=== PATIENT | male | born 1935 | race Caucasian/White ===

== ENCOUNTER 2017-09-06 09:07 | Emergency (ER) | payer MEDICARE, OTHER ==
[~2017-09-06] VITALS: Ht 180.3 cm; Wt 74.8 kg
[~2017-09-06 09:07] MED LIST: ATOR10; CARV3.125; CLOB.05TC TOP; CLOP75; FAMO20; LISI20 PO; Nitroglycerin0.4 MG SL; OMEG1CAP30; TRIA80TC TOP; Tasprin325 MG
[2017-09-06] MEDS ORDERED: Flomax0.4 MG PO (09:21)
== END 2017-09-06 09:45 | disposition home or self-care (01) ==
LOC: ER 09:07
DX: R33.9 Retention of urine, unspecified (principal); I10 Essential (primary) hypertension; E11.9 Type 2 diabetes mellitus without complications; J44.9 Chronic obstructive pulmonary disease, unspecified; F17.210 Nicotine dependence, cigarettes, uncomplicated
CPT/HCPCS: 51702; 51798; 81000; 99283

== ENCOUNTER 2017-09-09 08:25 | Emergency (ER) | payer MEDICARE, OTHER ==
[~2017-09-09] VITALS: Ht 180.3 cm; Wt 70.3 kg
[~2017-09-09 08:25] MED LIST changes: +Flomax0.4 MG PO
[2017-09-09 09:25] LABS: Source, Urine Catheter
[2017-09-09 09:33] LABS: Bilirubin, Urine Neg (Neg); Blood, Urine 5+ (Neg); Glucose Qualitative, Urine Neg (Neg); Ketones, Urine Neg (Neg); Leukocyte Esterase, Urine 1+ (Neg); Nitrite, Urine Neg (Neg); Protein, Urine 3+ (Neg); Urobilinogen, Urine NORM (Normal)
[2017-09-09 09:35] LABS: Appearance, Urine Cloudy (Clear); Color, Urine Yellow (P-Yellow)
[2017-09-09 09:38] LABS: Bacteria Few /hpf; Mucus Light (0-Heavy); Red Blood Cells, Urine 50-100 /hpf (0-2); Squamous Epithelial Cells Few /hpf (Few)
[2017-09-09] MEDS ORDERED: CIPR500 PO (09:40)
== END 2017-09-09 10:09 | disposition home or self-care (01) ==
LOC: ER 08:25
PROVIDERS: Physician Assistant
DX: N30.91 Cystitis, unspecified with hematuria (principal); I10 Essential (primary) hypertension; E11.9 Type 2 diabetes mellitus without complications; J44.9 Chronic obstructive pulmonary disease, unspecified; F17.210 Nicotine dependence, cigarettes, uncomplicated; Z88.2 Allergy status to sulfonamides; Z79.899 Other long term (current) drug therapy; Z79.82 Long term (current) use of aspirin
CPT/HCPCS: 71046; 81001; 87077; 87086; 87186; 99283

== ENCOUNTER 2017-12-15 17:44 | Emergency (ER) | payer MEDICARE, OTHER ==
[~2017-12-15] VITALS: Ht 180.3 cm; Wt 65.8 kg
[~2017-12-15 17:44] MED LIST changes: +CIPR500 PO
[2017-12-15 22:42] LABS: Source, Urine Clean Catch
[2017-12-15 22:54] LABS: Appearance, Urine Cloudy (Clear); Bilirubin, Urine Neg (Neg); Blood, Urine 5+ (Neg); Color, Urine Red (P-Yellow); Glucose Qualitative, Urine Neg (Neg); Ketones, Urine 1+ (Neg); Leukocyte Esterase, Urine 3+ (Neg); Nitrite, Urine Neg (Neg); Protein, Urine 3+ (Neg); Specific Gravity, Urine 1.015 (1.003-1.022); Urobilinogen, Urine NORM (Normal); pH, Urine 6.5 (5.0-8.0)
[2017-12-15 23:03] LABS: Bacteria Mod /hpf; Red Blood Cells, Urine TNTC /hpf (0-2); Squamous Epithelial Cells Not Seen /hpf (Few)
[2017-12-15] MEDS ORDERED: Cipro500 MG PO (23:11)
[2017-12-15] MEDS ORDERED: CEPH500 PO (23:28)
== END 2017-12-15 23:35 | disposition home or self-care (01) ==
LOC: ER 17:44
PROVIDERS: Emergency Medicine
DX: N40.0 Benign prostatic hyperplasia without lower urinary tract symptoms (principal); R31.9 Hematuria, unspecified; N39.0 Urinary tract infection, site not specified; Z88.2 Allergy status to sulfonamides; Z79.899 Other long term (current) drug therapy; Z79.82 Long term (current) use of aspirin; I10 Essential (primary) hypertension; E11.9 Type 2 diabetes mellitus without complications; J44.9 Chronic obstructive pulmonary disease, unspecified; F17.210 Nicotine dependence, cigarettes, uncomplicated
CPT/HCPCS: 81001; 87077; 87086; 87186; 99283

== ENCOUNTER 2018-03-15 23:37 | Emergency (ER) | payer MEDICARE, OTHER ==
[~2018-03-15] VITALS: Ht 180.3 cm; Wt 65.8 kg
[~2018-03-15 23:37] MED LIST changes: +CEPH500 PO; +Cipro500 MG PO
[2018-03-16 00:15] LABS: BASOPHILS ABSOLUTE AUTO 0.05 K/mm3 (0.00-0.23); BASOPHILS PERCENT AUTO 0 % (0-2); EOSINOPHILS ABSOLUTE AUTO 0.16 K/mm3 (0.00-0.68); EOSINOPHILS PERCENT AUTO 1 % (0-6); Hematocrit 40.9 % (37.0-53.0); IMMATURE GRAN ABSOLUTE AUTO 0.03 K/mm3 (0.00-0.10); IMMATURE GRAN PERCENT AUTO 0 % (0-1); LYMPHOCYTES ABSOLUTE AUTO 2.02 K/mm3 (0.84-5.20); LYMPHOCYTES PERCENT AUTO 17 % (21-46); MONOCYTES PERCENT AUTO 8 % (4-13); Mean Corpuscular HGB 30.7 pg (26.0-34.0); Mean Corpuscular HGB Conc 31.8 g/dL (31.5-36.5); Mean Corpuscular Volume 97 fL (80-100); Mean Platelet Volume 9.7 fL (9.1-12.4); NEUTROPHILS ABSOLUTE AUTO 8.51 K/mm3 (1.96-9.15); NEUTROPHILS PERCENT AUTO 73 % (41-73); Platelet Count 320 K/mm3 (150-400); RDW Coefficient Variation 15.6 % (11.7-14.2); RDW Standard Deviation 55.6 fL (35.1-46.3); Red Blood Cell Count 4.24 M/mm3 (4.30-5.90); White Blood Cell Count 11.67 K/mm3 (4.00-11.30)
[2018-03-16 00:34] LABS: Alanine Aminotransfer (ALT/SGP 20 U/L (12-78); Albumin, Blood 3.1 g/dL (3.4-5.0); Albumin/Globulin Ratio 0.8 (0.8-1.8); Alk Phos 92 U/L (50-136); Anion Gap 9 mmol/L (6-16); Aspartate Aminotrans (AST/SGOT 18 U/L (12-37); Bilirubin, Total 0.3 mg/dL (0.1-1.0); Blood Urea Nitrogen 15 mg/dL (8-24); Bun/Creatinine Ratio 17.5 (12.0-20.0); CO2, Blood 27 mmol/L (21-32); Calcium, Blood 8.5 mg/dL (8.5-10.1); Chloride, Blood 105 mmol/L (98-108); Creatinine, Blood 0.86 mg/dL (0.60-1.20); Glomerular Filtration Rate >60 (60-); Glucose, Blood 104 mg/dL (70-99); Potassium, Blood 3.9 mmol/L (3.5-5.5); Sodium, Blood 141 mmol/L (136-145); Total Protein, Blood 7.1 g/dL (6.4-8.2)
[2018-03-16 01:29] LABS: Source, Urine Clean Catch
[2018-03-16 01:36] LABS: Bilirubin, Urine Neg (Neg); Blood, Urine 5+ (Neg); Glucose Qualitative, Urine Neg (Neg); Ketones, Urine Neg (Neg); Leukocyte Esterase, Urine 3+ (Neg); Nitrite, Urine Pos (Neg); Protein, Urine 3+ (Neg); Specific Gravity, Urine 1.005 (1.003-1.022); Urobilinogen, Urine NORM (Normal)
[2018-03-16 01:38] LABS: Appearance, Urine Hazy (Clear); Color, Urine Red (P-Yellow)
[2018-03-16 01:42] LABS: Bacteria Mod /hpf; Red Blood Cells, Urine TNTC /hpf (0-2); Squamous Epithelial Cells Few /hpf (Few); White Blood Cells, Urine 25-50 /hpf (0-5)
[2018-03-16] MEDS ORDERED: Cefdinir300 MG PO (01:59)
== END 2018-03-16 02:18 | disposition home or self-care (01) ==
LOC: ER 23:37
PROVIDERS: Emergency Medicine
DX: N39.0 Urinary tract infection, site not specified (principal); I10 Essential (primary) hypertension; E11.9 Type 2 diabetes mellitus without complications; J44.9 Chronic obstructive pulmonary disease, unspecified; F17.210 Nicotine dependence, cigarettes, uncomplicated; Z88.2 Allergy status to sulfonamides; Z79.899 Other long term (current) drug therapy
CPT/HCPCS: 36415; 80053; 81001; 85025; 87077; 87086; 87147; 87186; 93005; 93010; 96360; 99283-25; J7030

== ENCOUNTER 2018-03-24 20:48 | Emergency (ER) | payer MEDICARE, OTHER ==
[~2018-03-24] VITALS: Ht 180.3 cm; Wt 65.8 kg
[~2018-03-24 20:48] MED LIST changes: +Cefdinir300 MG PO
[2018-03-24 21:48] LABS: BASOPHILS ABSOLUTE AUTO 0.07 K/mm3 (0.00-0.23); BASOPHILS PERCENT AUTO 1 % (0-2); EOSINOPHILS ABSOLUTE AUTO 0.24 K/mm3 (0.00-0.68); EOSINOPHILS PERCENT AUTO 3 % (0-6); Hematocrit 39.7 % (37.0-53.0); Hemoglobin 12.4 g/dL (13.5-17.5); IMMATURE GRAN ABSOLUTE AUTO 0.01 K/mm3 (0.00-0.10); IMMATURE GRAN PERCENT AUTO 0 % (0-1); LYMPHOCYTES ABSOLUTE AUTO 1.88 K/mm3 (0.84-5.20); LYMPHOCYTES PERCENT AUTO 24 % (21-46); MONOCYTES ABSOLUTE AUTO 0.74 K/mm3 (0.16-1.47); MONOCYTES PERCENT AUTO 9 % (4-13); Mean Corpuscular HGB 30.6 pg (26.0-34.0); Mean Corpuscular HGB Conc 31.2 g/dL (31.5-36.5); Mean Corpuscular Volume 98 fL (80-100); Mean Platelet Volume 9.4 fL (9.1-12.4); NEUTROPHILS ABSOLUTE AUTO 5.01 K/mm3 (1.96-9.15); NEUTROPHILS PERCENT AUTO 63 % (41-73); Platelet Count 355 K/mm3 (150-400); RDW Coefficient Variation 15.3 % (11.7-14.2); RDW Standard Deviation 55.1 fL (35.1-46.3); Red Blood Cell Count 4.05 M/mm3 (4.30-5.90); White Blood Cell Count 7.95 K/mm3 (4.00-11.30)
[2018-03-24 22:25] LABS: Alanine Aminotransfer (ALT/SGP 28 U/L (12-78); Albumin, Blood 2.7 g/dL (3.4-5.0); Albumin/Globulin Ratio 0.7 (0.8-1.8); Alk Phos 108 U/L (50-136); Anion Gap 5 mmol/L (6-16); Aspartate Aminotrans (AST/SGOT 22 U/L (12-37); Bilirubin, Total 0.1 mg/dL (0.1-1.0); Blood Urea Nitrogen 16 mg/dL (8-24); Bun/Creatinine Ratio 18.1 (12.0-20.0); CO2, Blood 30 mmol/L (21-32); Calcium, Blood 8.1 mg/dL (8.5-10.1); Chloride, Blood 105 mmol/L (98-108); Creatinine, Blood 0.88 mg/dL (0.60-1.20); Globulin, Blood 4.1 g/dL (2.2-4.0); Glomerular Filtration Rate >60 (60-); Glucose, Blood 132 mg/dL (70-99); Potassium, Blood 3.8 mmol/L (3.5-5.5); Sodium, Blood 140 mmol/L (136-145); Total Protein, Blood 6.8 g/dL (6.4-8.2)
[2018-03-24 22:58] LABS: Source, Urine Clean Catch
[2018-03-24 23:02] LABS: Bilirubin, Urine Neg (Neg); Blood, Urine 5+ (Neg); Glucose Qualitative, Urine Neg (Neg); Ketones, Urine 1+ (Neg); Leukocyte Esterase, Urine 3+ (Neg); Nitrite, Urine Neg (Neg); Protein, Urine 4+ (Neg); Urobilinogen, Urine NORM (Normal)
[2018-03-24 23:07] LABS: Appearance, Urine Cloudy (Clear); Color, Urine Red (P-Yellow)
[2018-03-24 23:08] LABS: Red Blood Cells, Urine TNTC /hpf (0-2)
[2018-03-24 23:09] LABS: Bacteria Many /hpf; Squamous Epithelial Cells Not Seen /hpf (Few); Yeast/Fungi Urine Few /hpf
[2018-03-24] MEDS ORDERED: LEVO750 PO (23:35)
== END 2018-03-24 23:45 | disposition home or self-care (01) ==
LOC: ER 20:48
PROVIDERS: Emergency Medicine
DX: N39.0 Urinary tract infection, site not specified (principal); Z88.2 Allergy status to sulfonamides; Z79.899 Other long term (current) drug therapy; I10 Essential (primary) hypertension; E11.9 Type 2 diabetes mellitus without complications; J44.9 Chronic obstructive pulmonary disease, unspecified; F17.210 Nicotine dependence, cigarettes, uncomplicated
CPT/HCPCS: 36415; 80053; 81001; 85025; 87086; 99283

== ENCOUNTER 2018-07-02 04:45 | Emergency (ER) | payer MEDICARE, OTHER ==
[~2018-07-02] VITALS: Ht 154.9 cm; Wt 70.3 kg
[~2018-07-02 04:45] MED LIST changes: -ATOR10; +ATOR10 PO; -FAMO20; +FAMO20 PO; +LEVO750 PO
[2018-07-02 06:02] LABS: BASOPHILS ABSOLUTE AUTO 0.05 K/mm3 (0.00-0.23); BASOPHILS PERCENT AUTO 1 % (0-2); EOSINOPHILS ABSOLUTE AUTO 0.14 K/mm3 (0.00-0.68); EOSINOPHILS PERCENT AUTO 2 % (0-6); Hematocrit 43.7 % (37.0-53.0); Hemoglobin 13.9 g/dL (13.5-17.5); IMMATURE GRAN ABSOLUTE AUTO 0.03 K/mm3 (0.00-0.10); IMMATURE GRAN PERCENT AUTO 0 % (0-1); LYMPHOCYTES ABSOLUTE AUTO 1.51 K/mm3 (0.84-5.20); LYMPHOCYTES PERCENT AUTO 18 % (21-46); MONOCYTES ABSOLUTE AUTO 0.74 K/mm3 (0.16-1.47); MONOCYTES PERCENT AUTO 9 % (4-13); Mean Corpuscular HGB 31.1 pg (26.0-34.0); Mean Corpuscular HGB Conc 31.8 g/dL (31.5-36.5); Mean Corpuscular Volume 98 fL (80-100); Mean Platelet Volume 9.6 fL (9.1-12.4); NEUTROPHILS ABSOLUTE AUTO 6.04 K/mm3 (1.96-9.15); NEUTROPHILS PERCENT AUTO 71 % (41-73); Platelet Count 287 K/mm3 (150-400); RDW Coefficient Variation 15.9 % (11.7-14.2); Red Blood Cell Count 4.47 M/mm3 (4.30-5.90); White Blood Cell Count 8.51 K/mm3 (4.00-11.30)
[2018-07-02 06:17] LABS: International Normalized Ratio 1.04
[2018-07-02 06:46] LABS: Alanine Aminotransfer (ALT/SGP 20 U/L (12-78); Albumin, Blood 3.1 g/dL (3.4-5.0); Albumin/Globulin Ratio 0.9 (0.8-1.8); Alk Phos 96 U/L (50-136); Anion Gap 2 mmol/L (6-16); Aspartate Aminotrans (AST/SGOT 19 U/L (12-37); Bilirubin, Total 0.4 mg/dL (0.1-1.0); Blood Urea Nitrogen 11 mg/dL (8-24); CO2, Blood 31 mmol/L (21-32); Calcium, Blood 8.4 mg/dL (8.5-10.1); Chloride, Blood 110 mmol/L (98-108); Creatinine, Blood 0.79 mg/dL (0.60-1.20); Globulin, Blood 3.6 g/dL (2.2-4.0); Glomerular Filtration Rate >60 (60-); Glucose, Blood 90 mg/dL (70-99); Potassium, Blood 4.2 mmol/L (3.5-5.5); Sodium, Blood 143 mmol/L (136-145); Total Protein, Blood 6.7 g/dL (6.4-8.2)
== END 2018-07-02 07:25 | disposition home or self-care (01) ==
LOC: ER 04:45
PROVIDERS: Emergency Medicine
DX: I10 Essential (primary) hypertension (principal); E11.9 Type 2 diabetes mellitus without complications; J44.9 Chronic obstructive pulmonary disease, unspecified; I25.10 Atherosclerotic heart disease of native coronary artery without angina pectoris; F17.210 Nicotine dependence, cigarettes, uncomplicated; Z88.2 Allergy status to sulfonamides; Z79.899 Other long term (current) drug therapy; Z79.82 Long term (current) use of aspirin
CPT/HCPCS: 36415; 70450; 80053; 85025; 85610; 93005; 93010; 99284-25

== ENCOUNTER 2018-07-15 11:16 | Emergency (ER) | payer MEDICARE, OTHER ==
[~2018-07-15] VITALS: Ht 180.3 cm; Wt 70.3 kg
== END 2018-07-15 12:43 | disposition home or self-care (01) ==
LOC: ER 11:16
DX: I10 Essential (primary) hypertension (principal); E11.9 Type 2 diabetes mellitus without complications; J44.9 Chronic obstructive pulmonary disease, unspecified; F17.210 Nicotine dependence, cigarettes, uncomplicated
CPT/HCPCS: 99282

== ENCOUNTER 2019-11-23 02:15 | Emergency (ER) | payer MEDICARE, OTHER ==
[~2019-11-23] VITALS: Ht 180.3 cm; Wt 61.2 kg
[2019-11-23] MEDS ORDERED: NITR.4SL SL (02:44)
== END 2019-11-23 04:58 | disposition left against medical advice (07) ==
LOC: ER 02:15
DX: Z53.21 Procedure and treatment not carried out due to patient leaving prior to being seen by health care provider (principal)

== ENCOUNTER → 2020-02-19 | Outpatient (CLI) | payer MEDICARE, OTHER ==
[~2020-02-19] MED LIST changes: +NITR.4SL SL
[2020-02-19 16:02] LABS: BASOPHILS ABSOLUTE AUTO 0.05 K/mm3 (0.00-0.23); BASOPHILS PERCENT AUTO 1 % (0-2); EOSINOPHILS ABSOLUTE AUTO 0.12 K/mm3 (0.00-0.68); EOSINOPHILS PERCENT AUTO 2 % (0-6); Hematocrit 47.2 % (37.0-53.0); Hemoglobin 14.5 g/dL (13.5-17.5); IMMATURE GRAN ABSOLUTE AUTO 0.03 K/mm3 (0.00-0.10); IMMATURE GRAN PERCENT AUTO 0 % (0-1); LYMPHOCYTES ABSOLUTE AUTO 1.86 K/mm3 (0.84-5.20); LYMPHOCYTES PERCENT AUTO 27 % (21-46); MONOCYTES ABSOLUTE AUTO 0.52 K/mm3 (0.16-1.47); MONOCYTES PERCENT AUTO 8 % (4-13); Mean Corpuscular HGB 29.5 pg (26.0-34.0); Mean Corpuscular HGB Conc 30.7 g/dL (31.5-36.5); Mean Corpuscular Volume 96 fL (80-100); Mean Platelet Volume 9.6 fL (9.1-12.4); NEUTROPHILS ABSOLUTE AUTO 4.21 K/mm3 (1.96-9.15); NEUTROPHILS PERCENT AUTO 62 % (41-73); Platelet Count 318 K/mm3 (150-400); RDW Coefficient Variation 15.6 % (11.7-14.2); RDW Standard Deviation 55.8 fL (35.1-46.3); Red Blood Cell Count 4.92 M/mm3 (4.30-5.90); White Blood Cell Count 6.79 K/mm3 (4.00-11.30)
[2020-02-19 16:20] LABS: Alanine Aminotransfer (ALT/SGP 24 U/L (12-78); Albumin, Blood 3.4 g/dL (3.4-5.0); Albumin/Globulin Ratio 0.8 (0.8-1.8); Alk Phos 75 U/L (50-136); Anion Gap 4 mmol/L (6-16); Aspartate Aminotrans (AST/SGOT 21 U/L (12-37); Bilirubin, Total 0.4 mg/dL (0.1-1.0); Blood Urea Nitrogen 18 mg/dL (8-24); Bun/Creatinine Ratio 18.2 (12.0-20.0); CHOL/HDL RATIO 1.7; CO2, Blood 32 mmol/L (21-32); Calcium, Blood 8.6 mg/dL (8.5-10.1); Chloride, Blood 104 mmol/L (98-108); Cholesterol 140 mg/dL (50-200); Creatinine, Blood 0.99 mg/dL (0.60-1.20); Glomerular Filtration Rate >60 (60-); Glucose, Blood 86 mg/dL (70-99); HDL Cholesterol 81 mg/dL (>39); LDL/HDL RATIO 0.5; Low Density Lipoprotein Chol 43 mg/dL (0-110); Sodium, Blood 140 mmol/L (136-145); Total Protein, Blood 7.4 g/dL (6.4-8.2); Triglycerides 79 mg/dL (30-160); Very Low Density Lipoprot Chol 15 mg/dL (6-32)
== END | disposition home or self-care (01) ==
LOC: LAB 14:42 → LAB SHORT 14:42
PROVIDERS: Family Medicine
DX: E78.5 Hyperlipidemia, unspecified (principal); I10 Essential (primary) hypertension
CPT/HCPCS: 80053; 80061; 85025

== ENCOUNTER → 2020-08-17 | Outpatient (CLI) | payer MEDICARE, OTHER ==
[2020-08-18 09:55] LABS: BASOPHILS ABSOLUTE AUTO 0.03 K/mm3 (0.00-0.23); BASOPHILS PERCENT AUTO 0 % (0-2); EOSINOPHILS ABSOLUTE AUTO 0.13 K/mm3 (0.00-0.68); EOSINOPHILS PERCENT AUTO 2 % (0-6); Hematocrit 47.9 % (37.0-53.0); Hemoglobin 14.5 g/dL (13.5-17.5); IMMATURE GRAN ABSOLUTE AUTO 0.01 K/mm3 (0.00-0.10); IMMATURE GRAN PERCENT AUTO 0 % (0-1); LYMPHOCYTES ABSOLUTE AUTO 1.77 K/mm3 (0.84-5.20); LYMPHOCYTES PERCENT AUTO 26 % (21-46); MONOCYTES ABSOLUTE AUTO 0.52 K/mm3 (0.16-1.47); MONOCYTES PERCENT AUTO 8 % (4-13); Mean Corpuscular HGB Conc 30.3 g/dL (31.5-36.5); Mean Corpuscular Volume 99 fL (80-100); Mean Platelet Volume 10.3 fL (9.1-12.4); NEUTROPHILS ABSOLUTE AUTO 4.49 K/mm3 (1.96-9.15); NEUTROPHILS PERCENT AUTO 65 % (41-73); Platelet Count 259 K/mm3 (150-400); RDW Coefficient Variation 16.5 % (11.7-14.2); RDW Standard Deviation 60.2 fL (35.1-46.3); Red Blood Cell Count 4.84 M/mm3 (4.30-5.90); White Blood Cell Count 6.95 K/mm3 (4.00-11.30)
== END | disposition home or self-care (01) ==
LOC: LAB UCHC 15:30 → LAB SHORT 15:30
PROVIDERS: Nurse Practitioner Family
DX: E78.5 Hyperlipidemia, unspecified (principal); E55.9 Vitamin D deficiency, unspecified
CPT/HCPCS: 82306; 85025

== ENCOUNTER 2020-08-26 11:42 | Observation (INO) | payer MEDICARE, OTHER ==
[~2020-08-26] VITALS: Ht 180.3 cm; Wt 61.0 kg
--- NOTE | 2020-08-26 16:20 | NUR ---
History, Chart, Medications and Allergies reviewed before start of procedure. Patient confirms NPO status and agrees with scheduled surgery.
--- NOTE | 2020-08-26 16:22 | NUR ---
FROM ER TO [facility] ADMISSION TO OUR UNIT STARTED.
[2020-08-26 16:53] LABS: SARS-Cov-2 (COVID-19) PCR, MMC NEGATIVE (NEGATIVE)
--- NOTE | 2020-08-26 17:13 | NUR ---
INTO STEP FROM PACU VSS PATIENT AWAKE WITH OCCAIONAL COUGH
--- NOTE | 2020-08-26 17:39 | NUR ---
08/26/20 1739 Greg Warren HISTORY,CHART, MEDICATIONS AND ALLERGIES REVIEWED BEFORE START OF PROCEDURE. PATIENT CONFIRMS NPO STATUS AND AGREES WITH SCHEDULED PROCEDURE. 3-LEAD EKG REVIEWED WITH PHYSICIAN PRIOR TO START OF PROCEDURE. MONITOR INTACT WITH CONTINUOUS PULSE OXIMETRY AND INTERMITTENT BP. SUPPLEMENTAL O2 TO BE TITRATED THROUGHOUT PROCEDURE TO MAINTAIN O2 SATURATION ABOVE 90%. PATIENT DETERMINED TO BE ASA APPROPRIATE FOR MODERATE SEDATION PRIOR TO START OF PROCEDURE BY DR. MCCORMICK. BITE BLOCK PLACED.
--- NOTE | 2020-08-26 17:51 | NUR ---
Discharge instructions reviewed with patient. Patient verbalizes understanding. Copy given to patient to take home. Discharged via wheelchair to private car for ride home.
--- NOTE | 2020-08-27 06:22 | NUR ---
SHIFT SUMMARY PATIENT ALERT AND ORIENTED. HAD NO COMPLAINTS OF PAIN OR SHORTNESS OF BREATH. NO ACUTE ISSUES NOTED OVERNIGHT. IV PATENT AND FLUSHED. BED IN LOWEST POSITION WITH WHEELS LOCKED. CALL LIGHT WITHIN REACH. REPORT GIVEN TO ONCOMING RN.
--- NOTE | 2020-08-27 10:13 | NUR ---
REVIEW D'C. NO CHANGES IN MEDS. AWARE HAS F/U APPT 09/02. AWARE NEEDS REFERRAL TO ENT MD. ANSWER ALL QUESTIONS. VERBALIZES UNDERSTANDING. IN W/C DOWN TO POV.
== END 2020-08-27 09:53 | disposition home or self-care (01) ==
LOC: ER 11:42 → MEDS 11:43 → ER 16:09 → MEDS 18:58
PROVIDERS: Emergency Medicine; Internal Medicine Gastroenterology; ADMIT Internal Medicine
PROC: 0DJ08ZZ Inspection of Upper Intestinal Tract, Via Natural or Artificial Opening Endoscopic (ICD-10-PCS; principal; 2020-08-26 17:00)
DX: R09.89 Other specified symptoms and signs involving the circulatory and respiratory systems (principal); J44.9 Chronic obstructive pulmonary disease, unspecified; F17.210 Nicotine dependence, cigarettes, uncomplicated; I25.10 Atherosclerotic heart disease of native coronary artery without angina pectoris; N40.0 Benign prostatic hyperplasia without lower urinary tract symptoms; I10 Essential (primary) hypertension; E78.5 Hyperlipidemia, unspecified; K21.9 Gastro-esophageal reflux disease without esophagitis; Z86.73 Personal history of transient ischemic attack (TIA), and cerebral infarction without residual deficits; Z88.2 Allergy status to sulfonamides; Z95.5 Presence of coronary angioplasty implant and graft; Z79.82 Long term (current) use of aspirin; Z86.010 Personal history of colon polyps; Z20.822 Contact with and (suspected) exposure to COVID-19
CPT/HCPCS: 70360; 71046; 94760; 96372; 99284-25; A9270; G0378; J1650; J2250; J3010; J7120; U0004

== ENCOUNTER → 2020-12-02 | Outpatient (CLI) | payer MEDICARE, OTHER ==
[2020-12-02 17:42] LABS: BASOPHILS ABSOLUTE AUTO 0.04 K/mm3 (0.00-0.23); BASOPHILS PERCENT AUTO 1 % (0-2); EOSINOPHILS ABSOLUTE AUTO 0.06 K/mm3 (0.00-0.68); EOSINOPHILS PERCENT AUTO 1 % (0-6); Hematocrit 44.5 % (37.0-53.0); Hemoglobin 14.5 g/dL (13.5-17.5); IMMATURE GRAN ABSOLUTE AUTO 0.02 K/mm3 (0.00-0.10); IMMATURE GRAN PERCENT AUTO 0 % (0-1); LYMPHOCYTES ABSOLUTE AUTO 1.48 K/mm3 (0.84-5.20); LYMPHOCYTES PERCENT AUTO 19 % (21-46); MONOCYTES ABSOLUTE AUTO 0.49 K/mm3 (0.16-1.47); MONOCYTES PERCENT AUTO 6 % (4-13); Mean Corpuscular HGB 30.4 pg (26.0-34.0); Mean Corpuscular HGB Conc 32.6 g/dL (31.5-36.5); Mean Corpuscular Volume 93 fL (80-100); Mean Platelet Volume 9.2 fL (9.1-12.4); NEUTROPHILS ABSOLUTE AUTO 5.82 K/mm3 (1.96-9.15); NEUTROPHILS PERCENT AUTO 74 % (41-73); Platelet Count 247 K/mm3 (150-400); RDW Coefficient Variation 15.4 % (11.7-14.2); RDW Standard Deviation 52.9 fL (35.1-46.3); Red Blood Cell Count 4.77 M/mm3 (4.30-5.90); White Blood Cell Count 7.91 K/mm3 (4.00-11.30)
[2020-12-02 17:46] LABS: Anion Gap 5 mmol/L (6-16); Blood Urea Nitrogen 19 mg/dL (8-24); Bun/Creatinine Ratio 16.7 (12.0-20.0); CO2, Blood 31 mmol/L (21-32); Calcium, Blood 8.4 mg/dL (8.5-10.1); Chloride, Blood 105 mmol/L (98-108); Creatinine, Blood 1.14 mg/dL (0.60-1.20); Glomerular Filtration Rate >60 (60-); Glucose, Blood 99 mg/dL (70-99); Potassium, Blood 4.6 mmol/L (3.5-5.5); Sodium, Blood 141 mmol/L (136-145)
== END | disposition home or self-care (01) ==
LOC: LAB 17:36 → LAB SHORT 17:36
PROVIDERS: Physician Assistant
DX: I10 Essential (primary) hypertension (principal)
CPT/HCPCS: 80048; 83880; 85025

== ENCOUNTER → 2021-03-05 | Outpatient (CLI) | payer MEDICARE, OTHER ==
[2021-03-05 20:21] LABS: CHOL/HDL RATIO 1.7; Cholesterol 137 mg/dL (50-200); HDL Cholesterol 80 mg/dL (>39); LDL/HDL RATIO 0.5; Low Density Lipoprotein Chol 43 mg/dL (0-110); Triglycerides 69 mg/dL (30-160); Very Low Density Lipoprot Chol 13 mg/dL (6-32)
== END | disposition home or self-care (01) ==
LOC: LAB SHORT 18:02 → LAB 18:02
PROVIDERS: Nurse Practitioner Family
DX: E78.5 Hyperlipidemia, unspecified (principal); E55.9 Vitamin D deficiency, unspecified; R97.20 Elevated prostate specific antigen [PSA]
CPT/HCPCS: 80061; 82306; 84153

== ENCOUNTER 2021-08-16 13:31 | Inpatient (IN) | payer OTHER ==
[~2021-08-16] VITALS: Ht 180.3 cm; Wt 54.9 kg
[~2021-08-16 13:31] MED LIST changes: -FAMO20 PO; +FAMO40 PO
[2021-08-16 15:52] LABS: BASOPHILS ABSOLUTE AUTO 0.01 K/mm3 (0.00-0.23); BASOPHILS PERCENT AUTO 0 % (0-2); EOSINOPHILS PERCENT AUTO 0 % (0-6); Hematocrit 51.3 % (37.0-53.0); Hemoglobin 15.7 g/dL (13.5-17.5); IMMATURE GRAN ABSOLUTE AUTO 0.03 K/mm3 (0.00-0.10); IMMATURE GRAN PERCENT AUTO 0 % (0-1); LYMPHOCYTES ABSOLUTE AUTO 0.45 K/mm3 (0.84-5.20); LYMPHOCYTES PERCENT AUTO 5 % (21-46); MONOCYTES ABSOLUTE AUTO 0.46 K/mm3 (0.16-1.47); MONOCYTES PERCENT AUTO 5 % (4-13); Mean Corpuscular HGB Conc 30.6 g/dL (31.5-36.5); Mean Corpuscular Volume 101 fL (80-100); Mean Platelet Volume 10.4 fL (9.1-12.4); NEUTROPHILS ABSOLUTE AUTO 7.51 K/mm3 (1.96-9.15); NEUTROPHILS PERCENT AUTO 89 % (41-73); Platelet Count 177 K/mm3 (150-400); RDW Coefficient Variation 17.1 % (11.7-14.2); RDW Standard Deviation 64.1 fL (35.1-46.3); Red Blood Cell Count 5.06 M/mm3 (4.30-5.90); White Blood Cell Count 8.46 K/mm3 (4.00-11.30)
[2021-08-16 16:11] LABS: Albumin, Blood 2.7 g/dL (3.4-5.0); Albumin/Globulin Ratio 0.8 (0.8-1.8); Bilirubin, Total 0.6 mg/dL (0.1-1.0); Calcium, Blood 8.7 mg/dL (8.5-10.1); Creatinine, Blood 0.87 mg/dL (0.60-1.20); Globulin, Blood 3.2 g/dL (2.2-4.0); Potassium, Blood 4.5 mmol/L (3.5-5.5); Total Protein, Blood 5.9 g/dL (6.4-8.2)
[2021-08-16 16:14] LABS: Creatine Kinase MB 16.3 ng/mL (0.0-3.6)
[2021-08-16] MEDS ORDERED: METOPROLOL SUCC25 MG PO (16:18)
[2021-08-16] MEDS ORDERED: LISI20 PO (16:18)
[2021-08-16 16:28] LABS: Magnesium, Blood 2.3 mg/dL (1.6-2.4)
[2021-08-16 17:55] LABS: Source, Urine Clean Catch
[2021-08-16 17:59] LABS: Appearance, Urine Hazy (Clear); Bilirubin, Urine Neg (Neg); Blood, Urine 2+ (Neg); Color, Urine Amber (P-Yellow); Glucose Qualitative, Urine Neg (Neg); Ketones, Urine 3+ (Neg); Leukocyte Esterase, Urine Neg (Neg); Nitrite, Urine Neg (Neg); Protein, Urine 2+ (Neg); Specific Gravity, Urine 1.025 (1.003-1.022); Urobilinogen, Urine NORM (Normal)
[2021-08-16 18:14] LABS: Bacteria Many /hpf; Squamous Epithelial Cells Few /hpf (Few)
[2021-08-16 19:31] LABS: Influenza A, PCR NEGATIVE (NEGATIVE); Influenza B, PCR NEGATIVE (NEGATIVE); Resp Syncytial Virus, PCR NEGATIVE (NEGATIVE); SARS-Cov-2 (COVID-19) PCR, MMC NEGATIVE (NEGATIVE)
[2021-08-16] MEDS ORDERED: CHLO25B PO (20:38)
--- NOTE | 2021-08-16 21:36 | NUR ---
PT UP TO FLOOR. PT ANSWERS QUESTIONS APPROPRIATELY BUT QUICKLY FALLS ASLEEP. PT LUNGS COARSE ON 2L NC. PT BELONGINGS WALLET, KEYS, UNDERWEAR IN ROOM ON BEDSIDE TABLE.
[2021-08-17 05:48] LABS: BASOPHILS PERCENT AUTO 0 % (0-2); EOSINOPHILS PERCENT AUTO 0 % (0-6); Hemoglobin 14.6 g/dL (13.5-17.5); IMMATURE GRAN ABSOLUTE AUTO 0.04 K/mm3 (0.00-0.10); IMMATURE GRAN PERCENT AUTO 1 % (0-1); LYMPHOCYTES ABSOLUTE AUTO 0.24 K/mm3 (0.84-5.20); LYMPHOCYTES PERCENT AUTO 3 % (21-46); MONOCYTES ABSOLUTE AUTO 0.13 K/mm3 (0.16-1.47); MONOCYTES PERCENT AUTO 2 % (4-13); Mean Corpuscular HGB 30.3 pg (26.0-34.0); Mean Corpuscular HGB Conc 29.8 g/dL (31.5-36.5); Mean Corpuscular Volume 102 fL (80-100); NEUTROPHILS ABSOLUTE AUTO 7.22 K/mm3 (1.96-9.15); NEUTROPHILS PERCENT AUTO 95 % (41-73); Platelet Count 168 K/mm3 (150-400); RDW Coefficient Variation 17.2 % (11.7-14.2); Red Blood Cell Count 4.82 M/mm3 (4.30-5.90); White Blood Cell Count 7.63 K/mm3 (4.00-11.30)
--- NOTE | 2021-08-17 06:02 | NUR ---
SHIFT SUMMARY NOC: PT SLEPT ALL SHIFT. PT ORIENTATION STATUS WAXED AND WANED WITH HOW SLEEPY HE WAS. PT WOULD ANSWER QUESTIONS APPROPRIATELY THEN FALL ASLEEP AND SPEECH WOULD BE GARBLED WHEN TRYING TO WAKE UP. PT ABLE TO FOLLOW COMMANDS, MOVES ALL EXTREMITIES, VOIDS IN URINAL, VERY WEAK.
[2021-08-17 06:04] LABS: Albumin, Blood 2.4 g/dL (3.4-5.0); Albumin/Globulin Ratio 0.8 (0.8-1.8); Bilirubin, Total 0.4 mg/dL (0.1-1.0); Bun/Creatinine Ratio 37.2 (12.0-20.0); Calcium, Blood 8.2 mg/dL (8.5-10.1); Creatinine, Blood 0.83 mg/dL (0.60-1.20); Potassium, Blood 4.7 mmol/L (3.5-5.5); Total Protein, Blood 5.4 g/dL (6.4-8.2)
--- NOTE | 2021-08-17 15:48 | NUR ---
DR. BROWN NOTIFIED OF BP 83/60. DR. BROWN REPORTED SHE WOULD PLACE ORDERS FOR MIDODRINE WITH PARAMETERS.
--- NOTE | 2021-08-17 18:44 | NUR ---
SHIFT SUMMARY: PATIENT HAS BEEN ALERT AND ORIENTED. PATIENT WAS ABLE TO GET UP TO THE CHAIR WITH PT. TAB ALARM PLACED ON PATIENT. PATIENT IS ABLE TO AMBULATE TO BATHROOM WITH FWW AND GB. PATIENT IS ABLE TO FOLLOW ALL COMMANDS. HIS BP WAS 83/60 AND 84/58 IN EACH ARM WHEN CHECKED AT 1530. WAS CALLED. ORDER WAS PLACED FOR MIDODRINE. PATIENT DOES NOT COMPLAIN OF ANY LIGHTHEADEDNESS OF DIZZINESS. PATIENT IS NOW RESTING COMFORTABLY IN BED.
--- NOTE | 2021-08-18 04:19 | NUR ---
SHIFT SUMMARY NO ACUTE CHANGES OVERNIGHT. PT REMAINED ON 2L NC, 02 SATS OVER 90%. DENIES SOB AND COUGH AT THIS TIME. VSS, MILDLY HYPOTENSIVE BUT ASYMPTOMATIC. PT AMBULATES IN THE BATHROOM WITH FWW ANG GB, 1SBA DENIES DIZZINESS. PT STILL HAS SOME EDEMA ON BLE. IV NS 1 BAG FINISHED THIS MORNING. PT AOX3 INTERMITTENTLY CONFUSED BUT EASILY REDIRECTED, APPROPRIATE, PLEASANT AND COOPERATIVE WITH CARE. PT HAD A GOOD NIGHT, VOIDING ADEQUATELY. TOLERATING PO INTAKE DENIES NAUSEA AND VOMITING. CALL LIGHT WITHIN REACH. HE CALLS APPROPRIATELY. WILL PROVIDE REPORT TO ONCOMING NURSE.
--- NOTE | 2021-08-18 18:46 | NUR ---
SHIFT SUMMARY- PT SAT ON SIDE OF BED THROUGHOUT PART OF SHIFT. PT MEDICATED PER EMAR PRESCRIBED. PT SLEPT DURING MID SHIFT. PT HAD SHOWER. PT COMPLIANT WITH ALL CARE. NO C/O OF PAIN DURING SHIFT. PT AMBULATED WITH ASSISTANCE WELL, AND WORKED WELL WITH PT. PT A&O X3. PT RESTING WITH CALL LIGHT WITHIN REACH, BED ALARM, AND SIDE RAILS UP.
--- NOTE | 2021-08-19 01:26 | NUR ---
SUMMARY NO ACUTE CHANGES OVERNIGHT. PT REMAINS ON 90'S FOR SYSTOLIC BUT ASYMPTOMATIC DENIES DIZZINESS, LIGHTHEADEDNESS AND CHEST PAIN. 2L NC AT THIS TIME SAT OVER 90%. SALINE LOCKED. AOX3 INTERMITTENTLY FORGETFUL. APPROPRIATE AND COOPERATIVE WITH CARE. BED ALARM ON FOR SAFETY. TOLERATING PO INTAKE, DENIES N/V. PT ALSO DENIES N/T. BLE EDEMA +1. AMBULATES IN THE BATHROOM WITH FWW AND GB, 1 SBA. CALL LIGHT WITHIN REACH. BED IN LOW POSITION. WILL CONTINUE TO MONITOR AND WILL PROVIDE REPORT TO ONCOMING NURSE.
--- NOTE | 2021-08-19 04:30 | NUR ---
ASSUMED CARE OF PATIENT AT 0230 FROM [facility] SHORT. PT SLEEPING, UP TO BATHROOM WITH STAND BY ASSIST. NO PRNS GIVEN.
--- NOTE | 2021-08-19 16:18 | NUR ---
DAY SHIFT SUMMARY 86 YR OLD MALE PT WITH ACUTE RESP FAILURE AND HYPOXIA. WAIT[place] TAKE HIM BACK TO LIVE WITH HER. PT IS STAND BY ASSIST WITH WALKER, WORKED WITH PT THIS SHIFT. TELE D/C. PT ON 1.5L O2 NC. CALL LIGHT WITHIN REACH OF PT WITH FREQUENT ROUNDING.
--- NOTE | 2021-08-20 01:30 | NUR ---
OXYGEN: WEAN OFF O2 TRIAL (AWAKE T/O TRIAL) 2210: 94-95% - RA - RESTING IN BED 0050: 87-89% - RA - RESTING IN BED 0100: 85-87% - RA - STOOD AT SIDE OF THE BED PT REPORTS PAIN ON HIS BACK TO HIS BONY REGION, MEPLEX APPLIED. NO SKIN BREAKDOWN NOTED. 0105: 90% - 1L, N/C SAT AT EOB, RESTING 0110: 92% - 2L, N/C SAT AT EOB, RESTING WILL CONTINUE TO MONITOR
--- NOTE | 2021-08-20 03:24 | NUR ---
NO ACUTE CHANGES OVERNIGHT. PT DIDN'T GET GOOD SLEEP TONIGHT. HE WAS UP ALMOST ALL NIGHT. AOX3. FORGETFUL AT TIMES. COOPERATIVE CARE, CALM AND PLEASANT. TOLERATING PO INTAKE DENIES N/V. VSS. DENIES CHEST PAIN AND SOB. ATTEMPT TO WEAN OFF O2, SEE NOTES ON EMR. PT DESATS AFTER MOVEMENT AT 85-87% RA. AT REST HE WAS AT 87-89%, 1L AVERAGING AT 90% AND 2L AT 92-95%. CALL LIGHT WITHIN REACH. WILL CONTINUE TO MONITOR AND WILL PROVIDE REPORT TO ONCOMING NURSE.
--- NOTE | 2021-08-20 06:48 | NUR ---
0620: OFFERED PT COFFEE. PT DIDN'T HAVE HIS NASAL CANNULA, RECHECKED O2 SATURATION. PT AVERAGING TO 81-83% ON ROOM AIR. REPORTS MILD SOB. PT WAS JUST SITTING ON HIS BED, WATCHING TV. NASAL CANULA WAS PUT BACK IN FOR 2L SATURATING AT 92%. CC
--- NOTE | 2021-08-20 16:28 | NUR ---
DAY SHIFT SUMMARY 86 YR OLD MALE PT TO BE DISCHARGE TO HIS DAUGHTER'S HOME WHEN SHE ARRIVES IN TOWN FROM [place]. HOME O2 EVAL PERFORMED THIS SHIFT. PT CURRENTLY ON 2L O2 NC. STANDBY ASSIST WITH FRONT WHEEL WALKER. FREQUENT ROUNDING. PREVENITIVE MEPILEX IN PLACE OVER FRANTZ PROMONICE.
--- NOTE | 2021-08-21 04:53 | NUR ---
SHIFT SUMMARY: PATIENT IS A&O TO SELF AND PLACE, DOES NOT KNOW DATE. ABLE TO MAKE NEEDS KNOWN. DOES NOT USE CALL KELLEY FOR ASSIST OOB, BED ALARM IS ON FOR SAFETY. REMOVES 02 AND DESATS QUICKLY, EXTENTION IS ADDED TO 02 LINE TO REACH THE BATHROOM MORE READILY. SOB AND DESATURATION WITH ACTIVITY. 02 IS INCREASED TO 4L FOR ACTIVITY. 3L AT REST. MAINTAINS SATS 98-99% ON 3L AT REST.
[2021-08-21] MEDS ORDERED: ALBU90OI INH (11:16)
[2021-08-21] MEDS ORDERED: FLUTICASONE-SA1 EAC2 INH (11:17)
[2021-08-21] MEDS ORDERED: MIDO5 PO (11:18)
[2021-08-21] MEDS ORDERED: ACET325 PO (11:19)
--- NOTE | 2021-08-21 17:42 | NUR ---
DISCHARGE NOTE DISCHARGE ORDERS RECIEVED AND REVIEWED, HOME O2 SET UP [facility]. D/C ORDERS, EDUCATION, MEDICATION AND INSTRUCTIONS REVIEWED WITH PT AND HIS DAUGHTER. IV REMOVED INTACT WITHOUT DIFFICULTY AND PT TOLERATED WELL. PT WAS ESCORTED OUT VIA W/C AND D/C HOME WITH HIS DAUGHTER AND TRANSPORTED TO HER HOME IN [place] VIA PRIVATE VEHICLE.
== END 2021-08-21 17:38 | disposition home or self-care (01) | DRG 189 ==
LOC: ER 13:31 → MEDS 18:48 → ER 20:35 → MEDS 20:44
PROVIDERS: Emergency Medicine; Student in an Organized Health Care Education/Training Program; ADMIT Internal Medicine
DX: J96.01 Acute respiratory failure with hypoxia (principal); R64 Cachexia; J44.1 Chronic obstructive pulmonary disease with (acute) exacerbation; M62.82 Rhabdomyolysis; Z68.1 Body mass index [BMI] 19.9 or less, adult; E11.9 Type 2 diabetes mellitus without complications; N40.0 Benign prostatic hyperplasia without lower urinary tract symptoms; I10 Essential (primary) hypertension; Z20.822 Contact with and (suspected) exposure to COVID-19; G31.84 Mild cognitive impairment of uncertain or unknown etiology; R55 Syncope and collapse; E86.9 Volume depletion, unspecified; F17.210 Nicotine dependence, cigarettes, uncomplicated; I25.10 Atherosclerotic heart disease of native coronary artery without angina pectoris; E78.00 Pure hypercholesterolemia, unspecified; I95.9 Hypotension, unspecified; Z51.5 Encounter for palliative care; Z88.2 Allergy status to sulfonamides; Z86.73 Personal history of transient ischemic attack (TIA), and cerebral infarction without residual deficits; Z95.5 Presence of coronary angioplasty implant and graft; Z86.718 Personal history of other venous thrombosis and embolism; Z90.89 Acquired absence of other organs; Z79.899 Other long term (current) drug therapy
CPT/HCPCS: 0241U; 36415; 70450; 71045; 71260; 72125; 80053; 81001; 82550; 82553; 83605; 83735; 84145; 84484; 85025; 85379; 87070; 87077; 87086; 87186; 87205; 93005; 93010; 94640; 94664; 94760; 94761; 96365; 97110; 97116; 97161; 97530; 99285-25; A9270; J0696; J1650; J7030; J7512; Q9967